=== PATIENT | female | born 1995 | race African-American/Black ===

== ENCOUNTER 2017-04-11 15:50 | Emergency (ER) | payer OTHER ==
[~2017-04-11] VITALS: Ht 167.6 cm; Wt 129.0 kg
[~2017-04-11 15:50] MED LIST: CYCL-319 PO; FERR-31 PO; HYDR-906 PO; NAPR-260 PO; PREN-21 PO
[2017-04-11 15:55] VITALS: Ht 167.6 cm; Wt 129.0 kg
--- NOTE | 2017-04-11 16:41 | ERD ---
ER Documentation Chief Complaint Date/Time DATE: 04/11/17 TIME: 16:38 Chief Complaint POKING PAIN @ MID CHEST AREA RADIATES TO THE LEFT ARM STARTED YESTERDAY HPI Patient is a 22 year old female with no past medical history who presents to the ED with chest wall pain, cough, congestion x 1 day. She states her daughter has had similar symptoms at home. She is not taking any medication for his symptoms. Denies fever or chills. Denies headache or dizziness, neck pain or neck stiffness. Denies leg pain or leg swelling. Denies abdominal pain, nausea , vomiting or diarrhea. Denies recent travel or recent surgery or use of OCPs. She states that the pain is exacerbated when she takes in a deep breath. States that she does not have pain when she is sitting comfortably breathing normally. States that it hurts a bit when she pushes on the left side of her chest. Denies radiation of pain. Denies weakness. Denies history of heart conditions in the family or heart attacks. No other complaints. ROS All systems reviewed and are negative except as per history of present illness. Medications Home Meds Active Scripts Cetirizine Hcl* (Zyrtec*) 10 Mg Capsule, 10 MG PO DAILY, #20 TAB.CHEW Prov:BRI MANRIQUEZ PA-C 04/11/17 Benzonatate* (Tessalon Perle*) 100 Mg Capsule, 100 MG PO Q8H Y for COUGH for 14 Days, CAP Prov:BRI MANRIQUEZ PA-C 04/11/17 Acetaminophen* (Tylophen*) 500 Mg Capsule, 1 CAP PO Q6H Y for PAIN AND OR ELEVATED TEMP, #20 CAP Prov:BRI MANRIQUEZ PA-C 04/11/17 Albuterol Sulfate* (Proair HFA*) 8.5 Gm Hfa.aer.ad, 2 PUFF INH Q4, #1 INHALER Prov:BRI MANRIQUEZ PA-C 04/11/17 Cyclobenzaprine Hcl* (Cyclobenzaprine Hcl*) 10 Mg Tablet, 10 MG PO TID, #15 TAB Prov:CARMEN WHEELER PA-C 09/03/16 Naproxen* (Naprosyn*) 500 Mg Tablet, 500 MG PO BID Y for PAIN AND/OR INFLAMMATION, #30 TAB Prov:CARMEN WHEELER PA-C 09/03/16 Hydrocodone/Acetaminophen ([place] 5-325 Tablet) 1 Each Tablet, 1 TAB PO Q6H Y for PAIN, #7 TAB Prov:CARMEN WHEELER PA-C 09/03/16 Reported Medications Ferrous Sulfate (Iron Supplement) 1 Tab Tablet, 1 TAB PO DAILY 09/11/15 Vit/Fe Fum/Katie/Fa ( 19 Tablet) 1 Tab Tablet, 1 TAB PO DAILY 09/11/15 Allergies Allergies: Coded Allergies: banana (Verified Allergy, Severe, throat swollen, 01/17/16) No Known Drug Allergies (Verified Allergy, Unknown, 12/29/15) PMhx/Soc History of Surgery: No Anesthesia Reaction: No Hx Neurological Disorder: No Hx Respiratory Disorders: No Hx Cardiac Disorders: No Hx Psychiatric Problems: No Hx Miscellaneous Medical Probl: No Hx Alcohol Use: No Hx Substance Use: No Hx Tobacco Use: No Smoking Status: Never smoker FmHx Family History: No coronary disease, No diabetes, No other Physical Exam Vitals Vital Signs Date Time Temp Pulse Resp B/P Pulse Ox O2 Delivery O2 Flow Rate FiO2 04/11/17 15:55 98.6 108 18 116/57 96 Physical Exam GENERAL: Well-developed, well-nourished female. Appears in no acute distress. HEAD: Normocephalic, atraumatic. EYES: Pupils are equally reactive bilaterally. EOMs grossly intact. No conjunctival erythema. ENT: Moist mucous membranes. No uvula deviation. No kissing tonsils. No exudates. NECK: Supple. No lymphadenopathy or thyromegaly. No meningismus. negative kernig. negative brudinski. LUNG: Clear to auscultation bilaterally. No rhonchi, wheezing, rales or coarse breath sounds. Tenderness to the left side of her chest lateral to the sternum. HEART: Regular rate and rhythm. No murmurs, rubs or gallops. Extremities: Equal pulses bilaterally. No peripheral clubbing, cyanosis or edema. No unilateral leg swelling. Negative Homans sign. No palpable cord. NEUROLOGIC: Alert and oriented. Moving all four extremities. 5/5 strength in all extremities. Normal speech. Steady gait. SKIN: Normal color. Warm and dry. No rashes or lesions. Capillary refill < 2 seconds Procedures/MDM ER COURSE: I kept the patient and/or family informed of laboratory and diagnostic imaging results throughout the emergency room course. IMAGING STUDIES EKG performed, read by Dr. Lorenzana 103bpm, sinus tachycardia normal axis, no acute ST segment changes, no T wave inversion [place] [id number] Radiology Main Line: [phone] DIAGNOSTIC IMAGING REPORT Patient: VIK OSORIO : 1995 Age: 22 Sex: F MR #: [id number] DOS: 04/11/17 1628 Ordering MD: BRI MANRIQUEZ PA-C Location: [facility] Room/Bed: PROCEDURE: XR Chest. CLINICAL INDICATION: Cough TECHNIQUE: Single AP view of the chest were obtained COMPARISON: None FINDINGS: The heart and mediastinum are within normal limits. The pulmonary vasculature are unremarkable. The aorta is unremarkable. There is no lung consolidation, pleural effusion or pneumothorax. There is no acute osseous abnormality. IMPRESSION: No acute disease. RPTAT: AA .Felicita Reid MD, MD Date Time Electronically viewed and signed by .Felicita Reid MD, on 04/11/2017 16:50 .J/ CC: BRI MANRIQUEZ PA-C MEDICAL DECISION MAKING: This is a 22-year-old female who presents with cough, congestion and shortness of breath 1 day. Vital signs were reviewed. Patient is afebrile. Patient is not hypoxic. Patient is not toxic or ill-appearing. Patient's x-rays of by radiologist unremarkable and EKG is within normal limits. Patient has tenderness on examination on her chest and pain is reproducible. I have low suspicion for cardiac emergency. Patient likely has URI of viral etiology with mild chest wall pain. Low suspicion for pneumonia, PE, pneumothorax, ACS, epiglottitis, obstruction, TB, pertussis, meningitis, sepsis. Low suspicion for ACS, PE, AAA, dissection, DVT. Patient pulls is 103, likely related to stress reaction and coughing. I have low suspicion for PE. Patient denies family history of heart disease. DISCHARGE: At this time, patient is stable for discharge and outpatient management with no new complaints during the ER course. Patient was sent home with Tessalon Perles , Tylenol, albuterol and. [facility] reports are given to mom. Patient will be discharged home with instructions to recheck for new or worsening symptoms such as fever, nausea, weakness, LOC and to follow up with primary care in the next 1-2 days. Patient was advised to return to the ER for any new or worsening symptoms. Plan was discussed and patient and/or family understands and agrees. Home instructions were given. Departure Diagnosis: Primary Impression: URI, acute Condition: Stable BRI MANRIQUEZ PA-C Apr 11, 2017 16:41
--- NOTE | 2017-04-11 16:51 | RADRPT ---
PROCEDURE: XR Chest. CLINICAL INDICATION: Cough TECHNIQUE: Single AP view of the chest were obtained COMPARISON: None FINDINGS: The heart and mediastinum are within normal limits. The pulmonary vasculature are unremarkable. The aorta is unremarkable. There is no lung consolidation, pleural effusion or pneumothorax. There i s no acute osseous abnormality. IMPRESSION: No acute disease. RPTAT: AA .Felicita Reid MD, Date Time Electronically viewed and signed by .Felicita Reid MD, on 04/11/2017 16:50 .J/
[2017-04-11] MEDS ORDERED: CETI10CA PO (17:04)
[2017-04-11] MEDS ORDERED: ALBU8.5H3 INH (17:04)
[2017-04-11] MEDS ORDERED: BENZ100C70 PO (17:04)
[2017-04-11] MEDS ORDERED: ACET500C5 PO (17:04)
== END 2017-04-11 17:23 | disposition home or self-care (01) ==
LOC: FTE 15:50
DX: J06.9 Acute upper respiratory infection, unspecified (principal)
CPT/HCPCS: 71010; 93005; Z7502

== ENCOUNTER 2018-10-08 14:34 | Emergency (ER) | END 2018-10-08 16:03 | disposition home or self-care (01) ==